=== PATIENT | male | born 1970 ===

== ENCOUNTER 2018-04-09 06:36 | Day surgery (SDC) | payer OTHER ==
[2018-04-09 07:02] VITALS: BMI 24.2
--- NOTE | 2018-04-09 08:20 | CP.SDSHP ---
Same Day Surgery H & P - History Proposed Procedure: EGD Pre-Op Diagnosis: SEE NOTES - Previous Medical/Surgical History Misc: Other Pain: 4.Moderate Pain - Allergies Allergies: Allergies No Known Allergies Allergy (Verified 01/09/17 08:52) - Physical Exam General Appearance: N Vital Signs: Vital Signs 04/09/18 07:04 Temperature 97 F L Pulse Rate 59 L Respiratory 16 Rate Blood Pressure 122/70 Neuro: WNL Heart: WNL Lungs: WNL GI: Other - {Optional Preform as Required} Breast: WNL Abdomen: Other Rectal: WNL Integument: WNL HEAD LINEMAN: WNL Ortho: WNL ENT: WNL - Impression Pt. Evaluated Today:Candidate for Anesthesia & Procedure: Yes - Date & Time Time: 08:21 Short Stay Discharge - Short Stay Discharge Admitting Diagnosis/Reason for Visit: DYSPEPSIA / DYSPHAGIA Disposition: HOME/ ROUTINE
[2018-04-09] MEDS ORDERED: Propofol 10 mg/ml Inj (20 ML) ONE (08:21)
[2018-04-09] MEDS ORDERED: Pantoprazole 40 mg EC Tab PO STA (08:22)
[2018-04-09] MEDS ORDERED: Belladonna-Phenobarbital PO STA (08:23)
[2018-04-09] MEDS ORDERED: Lidocaine Hydrochloride 5 ML INJ ONE (08:50)
[2018-04-09 09:25] VITALS: TEMP 98.6
[2018-04-09 09:26] VITALS: O2SAT 98
[2018-04-09 09:56] VITALS: BP 109/65; PULSE 53; RESP 18
== END 2018-04-09 09:35 | disposition home or self-care (01) ==
LOC: C.ENDO 06:36
PROVIDERS: ATTEND Specialist
DX: K29.70 Gastritis, unspecified, without bleeding (principal); K22.2 Esophageal obstruction
CPT/HCPCS: 43239; 88305; 88342; J2704